=== PATIENT | female | born 1990 | race Two or more races ===

== ENCOUNTER 2021-11-18 15:22 | Emergency (ER) | payer OTHER ==
[~2021-11-18] VITALS: Ht 154.9 cm; Wt 86.2 kg
== END 2021-11-18 20:27 | disposition home or self-care (01) ==
LOC: ER 15:22
DX: U07.1 COVID-19 (principal); B34.9 Viral infection, unspecified; Z20.822 Contact with and (suspected) exposure to COVID-19

== ENCOUNTER 2021-12-24 02:00 | Outpatient (CLI) | payer OTHER | END 2021-12-24 02:30 | disposition home or self-care (01) | LOC: PPH VACUNA 02:00 | PROVIDERS: ATTEND Emergency Medicine Pediatric Emergency Medicine | DX: Z23 Encounter for immunization (principal) ==